=== PATIENT | male | born 1955 | race African-American/Black ===

== ENCOUNTER 2017-10-03 13:47 | Emergency (ER) | payer MEDICAID ==
[~2017-10-03] VITALS: Ht 182.9 cm; Wt 93.0 kg
[~2017-10-03 13:47] MED LIST: COUMADIN; DILANTIN; DOXYCYCLINE HYCLATE; KEFLEX; KEPPRA; PERCOCET; PHENOBARBITAL; VICODIN ES
[2017-10-03] MEDS ORDERED: ACETAMINOPHEN 325MG TABLET PO ONE (18:45)
[2017-10-03] MEDS ORDERED: KETOROLAC 60MG/2ML VIAL IM ONE (21:00)
[2017-10-03 22:56] VITALS: BP 125/75
== END 2017-10-03 23:10 | disposition home or self-care (01) ==
LOC: ER 14:10
DX: S09.8XXA Other specified injuries of head, initial encounter (principal); M48.02 Spinal stenosis, cervical region; L97.909 Non-pressure chronic ulcer of unspecified part of unspecified lower leg with unspecified severity; G93.89 Other specified disorders of brain; G40.909 Epilepsy, unspecified, not intractable, without status epilepticus; Z79.01 Long term (current) use of anticoagulants; Z98.890 Other specified postprocedural states; Z86.73 Personal history of transient ischemic attack (TIA), and cerebral infarction without residual deficits; Y04.0XXA Assault by unarmed brawl or fight, initial encounter; Y93.89 Activity, other specified; Y92.481 Parking lot as the place of occurrence of the external cause
CPT/HCPCS: 70450; 72125; 96372; 99284; J1885; Z7610